=== PATIENT | female | born 1960 | race Caucasian/White ===

== ENCOUNTER 2021-12-29 14:00 | Outpatient (RCR) | payer BC, SELFPAY | END 2022-02-09 11:35 | disposition home or self-care (01) | PROVIDERS: PCP Family Medicine; Visit Provider Family Medicine | DX: M54.17 Radiculopathy, lumbosacral region (principal); M48.062 Spinal stenosis, lumbar region with neurogenic claudication; M54.41 Lumbago with sciatica, right side; Z51.89 Encounter for other specified aftercare | CPT/HCPCS: 97110; 97140; 97161 ==

== ENCOUNTER 2022-02-18 10:01 | Outpatient (CLI) | payer BC, SELFPAY ==
--- NOTE | 2022-02-18 10:15 | CRLHL7_ITS ---
For Patients: As a result of the 21st Century Cures Act, medical imaging exams and procedure reports are released immediately into your electronic medical record. You may view this report before your referring provider. If you have questions, please contact your health care provider. Indication: Low-back pain Technique: Noncontrast sagittal and axial T1, T2, and sagittal STIR sequences are provided. Comparison: MR 07/07/2018 Findings: Nomenclature is based on 5 lumbar-type vertebral bodies. No fractures. Increased STIR signal in the L2, L3 and L4 vertebral bodies likely due to degenerative changes. New increased STIR signal in the right L3 transverse process and left L4 and L5 pedicles likely due to stress reaction. Modic type 1 endplate degenerative changes at L5-S1 on the left side. The conus medullaris is normal in signal and location. Splenomegaly. Few bilateral renal cysts. T12-L1: No significant spinal canal stenosis or neural foramen narrowing. L1-2: No significant spinal canal stenosis or neural foramen narrowing. L2-3: Severe disc space narrowing, slight retrolisthesis. Circumferential disc bulge and osteophytic spurring. Small right central disc extrusion with inferior migration is unchanged. Mild spinal canal narrowing. Moderate right and mild left neural foramen narrowing. L3-4: Moderate interspace narrowing. Disc bulge and osteophytic spurring. Left foramen disc protrusion. Bilateral facet arthrosis and ligamentum flavum buckling. Moderate spinal canal narrowing. Moderate left and [id number] right neural foramen narrowing. L4-5: Moderate disc space narrowing. Stable grade 1 anterolisthesis. Circumferential disc bulge. Advanced facet arthrosis and ligamentum flavum buckling. New severe spinal canal stenosis. Worsening moderate left and mild right neural foramen narrowing. L5-S1: Disc desiccation. New moderate left central disc extrusion measuring 1.7 cm TR x 0.9 cm posterior displaces and impinges the traversing left S1 nerve roots. Moderate bilateral facet arthrosis. New moderate left neural foramen narrowing and possible irritation of the left L5 nerve roots. No right neural foramen narrowing Impression: 1. Multilevel lumbar spondylosis. No acute fractures. New increased STIR signal in the right L3 transverse process and left L4 and L5 pedicles likely due to stress reaction. 2. At L5-S1, new left central disc extrusion posterior displaces and impinges the traversing left S1 nerve roots. New moderate left neural foramen narrowing and possible irritation of the left L5 nerve roots. 3. At L4-5, worsening degenerative changes with new severe spinal canal stenosis, worsening of moderate left and mild right neural foramen narrowing. 4. At L3-4, similar moderate spinal canal narrowing, moderate left and [id number] right neural foramina narrowing. 5. At L2-3, similar mild spinal canal narrowing and moderate right neural foramen narrowing. Dictated by Kirill Hamilton MD @ 02/19/2022 11:07:52 AM (Electronically Signed)
== END 2022-02-18 10:02 | disposition home or self-care (01) ==
LOC: MRI 10:03
PROVIDERS: PCP Family Medicine; Visit Provider Family Medicine
DX: M54.50 Low back pain, unspecified (principal); M51.26 Other intervertebral disc displacement, lumbar region; M51.27 Other intervertebral disc displacement, lumbosacral region; M48.062 Spinal stenosis, lumbar region with neurogenic claudication; M51.36 Other intervertebral disc degeneration, lumbar region; M54.16 Radiculopathy, lumbar region
CPT/HCPCS: 72148

== ENCOUNTER 2022-03-10 09:46 | Outpatient (CLI) | payer BC, SELFPAY | END 2022-03-10 09:47 | disposition home or self-care (01) | LOC: INJ CL 09:47 | PROVIDERS: PCP Family Medicine; Visit Provider Family Medicine | DX: M51.36 Other intervertebral disc degeneration, lumbar region (principal); M54.16 Radiculopathy, lumbar region | CPT/HCPCS: 62323; J0702; Q9966 ==